=== PATIENT | female | born 1970 | race Caucasian/White ===

== ENCOUNTER 2022-12-16 09:11 | Outpatient (CLI) | payer BC | END 2022-12-16 09:12 | disposition home or self-care (01) | LOC: RAD 09:11 | PROVIDERS: ATTEND Neurological Surgery | DX: M47.12 Other spondylosis with myelopathy, cervical region (principal); Z98.890 Other specified postprocedural states | CPT/HCPCS: 72040 ==

== ENCOUNTER 2022-12-26 07:21 | Outpatient (CLI) | payer BC ==
[2022-12-26 08:33] LABS: Hemoglobin 13.8 g/dL (12.0-15.5); Mean Corpuscular HGB CONC 33.2 g/dL (32.0-36.0); Mean Corpuscular Hemoglobin 29.7 pg (27.0-33.0); Mean Corpuscular Volume 89.5 fl (81.6-98.3); Platelet Count 323 10x3/uL (150-450); RBC Distribution Width 12.7 % (11.5-14.5); Red Blood Cell (RBC) Count 4.65 10x6/uL (3.90-5.03)
[2022-12-26 08:36] LABS: Anion Gap 16 mmol/L (10-20); BUN (Urea Nitrogen) 9 mg/dL (9.8-20.1); Calc. Creatinine Clearance 0 mL/min (70-130); Calcium 9.6 mg/dL (7.8-10.44); Carbon Dioxide 24 mmol/L (22-29); Chloride 103 mmol/L (98-107); Estimated GFR 80; Glucose 152 mg/dL (70-105); Potassium 4.2 mmol/L (3.5-5.1); Sodium 139 mmol/L (136-145)
== END 2022-12-26 07:22 | disposition home or self-care (01) ==
LOC: LABBT 07:21
PROVIDERS: ATTEND Neurological Surgery
DX: Z01.818 Encounter for other preprocedural examination (principal); M54.12 Radiculopathy, cervical region
CPT/HCPCS: 80048; 85027; 93005; 93010

== ENCOUNTER 2022-12-31 05:40 | Day surgery (SDC) | payer BC ==
[2022-12-26 08:10] VITALS: BMI 37.6
[2022-12-31] MEDS ORDERED: Thrombin 5000 UNITS/5 ML VIAL ONE (06:18)
[2022-12-31] MEDS ORDERED: EPINEPHrine 1 MG/ML AMP ONE (06:18)
[2022-12-31] MEDS ORDERED: Bupivacaine PF 0.5% 30 ML VIAL ONE (06:18)
[2022-12-31] MEDS ORDERED: Dexmedetomidine 200 MCG/2 ML VIAL ONE (06:37)
[2022-12-31] MEDS ORDERED: Magnesium 5 GM/10 ML VIAL ONE (06:37)
[2022-12-31] MEDS ORDERED: fentaNYL PF 100 MCG/2 ML SYRINGE ONE ×3 (06:37→08:57)
[2022-12-31] MEDS ORDERED: CEFAZOLIN 2 GM VIAL ONE ×2 (06:49→10:47)
[2022-12-31] MEDS ORDERED: Sodium Chloride 0.9% 100 ML ONE ×2 (06:49→10:47)
[2022-12-31] MEDS ORDERED: Scopolamine 1.5 mg/72 hour Patch ONE (06:56)
[2022-12-31] MEDS ORDERED: Dexamethasone 20 MG/5 ML VIAL ONE (07:00)
[2022-12-31] MEDS ORDERED: Ondansetron PF 4 MG/2 ML Vial ONE (07:00)
[2022-12-31] MEDS ORDERED: NEOSTIGMINE 3 MG/3 ML SYR 3 MG/3 ML SYRINGE ONE (07:00)
[2022-12-31] MEDS ORDERED: Rocuronium Bromide 10 MG/ML (10ML VIAL) ONE (07:00)
[2022-12-31] MEDS ORDERED: PROPOFOL 200 MG/20 ML VIAL ONE (07:00)
[2022-12-31] MEDS ORDERED: Glycopyrrolate 0.2 MG/ML 5 ML SYRINGE ONE (07:00)
[2022-12-31] MEDS ORDERED: Metoclopramide HCl 10 MG/2 ML VIAL ONE (07:00)
[2022-12-31] MEDS ORDERED: ePHEDrine Sulfate 50 MG/10 ML VIAL ONE (07:00)
[2022-12-31] MEDS ORDERED: Ketorolac Tromethamine 30 MG/ML VIAL ONE (08:31)
[2022-12-31] MEDS ORDERED: Promethazine HCl 25 MG/ML VIAL ONE (08:31)
[2022-12-31] MEDS ORDERED: Acetaminophen 325 MG TAB ONE (10:41)
[2022-12-31] MEDS ORDERED: traMADol HCl 50 MG TAB ONE (10:41)
== END 2022-12-31 12:07 | disposition home or self-care (01) ==
LOC: SDC 05:40
PROVIDERS: ATTEND Neurological Surgery
PROC: 01N10ZZ Release Cervical Nerve, Open Approach (ICD-10-PCS; principal; 2022-12-31)
DX: M54.12 Radiculopathy, cervical region (principal); E11.22 Type 2 diabetes mellitus with diabetic chronic kidney disease; I12.9 Hypertensive chronic kidney disease with stage 1 through stage 4 chronic kidney disease, or unspecified chronic kidney disease; N18.9 Chronic kidney disease, unspecified; F41.9 Anxiety disorder, unspecified; Z79.84 Long term (current) use of oral hypoglycemic drugs; Z79.899 Other long term (current) drug therapy; Z91.041 Radiographic dye allergy status; Z88.0 Allergy status to penicillin; Z88.6 Allergy status to analgesic agent; Z88.8 Allergy status to other drugs, medicaments and biological substances; Z88.1 Allergy status to other antibiotic agents; Z90.49 Acquired absence of other specified parts of digestive tract
CPT/HCPCS: C1713; J0171; J1100; J1885; J2405; J2550; J2704; J2765; J3475; J3490; S0020